=== PATIENT | female | born 1930 | race Caucasian/White ===

== ENCOUNTER 2016-08-06 10:54 | Emergency (ER) | payer MEDICARE, BC ==
--- NOTE | ~2016-08-06 | CT2 ---
[facility] A Service of [facility] & [facility] RADIOLOGY TEXT RESULTS PATIENT: SHAHNAZ WORLEY LOCATION: [facility] : [birth year] UNIT #: [id number] AGE: [address]: Dena Hollis MD SEX: F ORDER DR: [id number] [facility] [address] [place], [place] [address] [id number] MR#: [id number] Acc #: [id number] NAME: SHAHNAZ WORLEY. : 1930 SEX: F STUDY DATE/TIME: 08/06/2016 12:58 UNIT: [facility] ROOM: STUDY DESCRIPTION: CT Abd and Pelv W Cont Attending Physician: Dena Hollis M.D. Ordering Physician: Dena Hollis M.D. Primary Care Physician: Rocael Epstein Jr., M.D. MEDICAL IMAGING REPORT This report is preliminary unless electronic signature is present EXAM CT abdomen and pelvis with contrast. DATE OF EXAM 08/06/2016, 1258 hours. CLINICAL HISTORY 86-year-old woman complaining of low back pain and left hip pain since 08/03/2016. Nausea and vomiting today. COMPARISON None. TECHNIQUE Dynamic helical CT images were obtained from the lung bases through the pubic symphysis with intravenous contrast. Sagittal and coronal reconstructions were performed. Contrast was Isovue-370 100 mL IV. Total exam DLP 905 mGy-cm. NOTE: This CT exam was performed with one or more of the following radiation dose reduction techniques: automatic exposure control, adjustment of mA and/or kV according to patient size, and iterative reconstruction. FINDINGS Images through the lung bases demonstrate linear atelectasis or scar in the lingula and left lower lobe. There is a calcified granuloma in the left lower lobe. There are no acute infiltrates or effusions. There is a very small hiatal hernia. Images through the abdomen with contrast demonstrate a normal appearance to the liver, spleen, pancreas, gallbladder and bile ducts. The adrenal glands are normal. The kidneys enhance normally with no mass or stone seen. There is no obstruction or ureterectasis. No ureteral calculus. STS. [facility] A Service of [facility] & [facility] RADIOLOGY TEXT RESULTS PATIENT: SHAHNAZ WORLEY [id number] [birth year] UNIT #: [id number] AGE: [address]: Dena Hollis MD SEX: F ORDER DR: The bladder is normal. The stomach is contracted unopacified but appears normal. There is no small bowel distension or small bowel wall thickening. The appendix is normal. The colon demonstrates moderate stool in the right colon. There are colonic diverticula scattered in the descending colon with innumerable diverticula in the sigmoid colon. There is no definite wall thickening or pericolonic inflammation at this time. The rectum is normal. IMPRESSION 1. There are innumerable colonic diverticula in the sigmoid colon without definite bowel wall thickening or inflammation at this time. Findings are most consistent with diverticulosis without diverticulitis. 2. Normal appendix. 3. There is no adenopathy or ascites. 4. There is degenerative change in the lumbar spine particularly at L4-5. There is mild compression deformity at the inferior endplate of L1 of indeterminate age. Dictated by... Deepthi Brooks M.D. THIS IS AN ELECTRONICALLY VERIFIED REPORT Deepthi Brooks M.D. at 08/07/2016 9:27 AM JHONY/leif TD: 08/06/2016 16:31 JOB #: [id number] MEDICAL IMAGING REPORT COPY
[~2016-08-06 10:54] MED LIST: ATENOLOL PO; ATIVAN PO; CLONIDINE TOP; HCTZ PO; LISINOPRIL PO; PLETAL50 MG PO; ZOCOR PO
[2016-08-06 11:48] LABS: BASOPHIL# 0.1 X10e3 (0-0.3); BASOPHIL% 0.6 % (0-2.5); EOSINOPHIL% 0.4 % (0.0-7.0); HEMOGLOBIN 13.7 gm/dL (12.0-16.0); LYMPHOCYTE# 1.4 X10e3 (1.0-3.5); LYMPHOCYTE% 15.6 % (17.0-45.0); MEAN CELL VOLUME 87.1 FL (83-96); MEAN CORPUSCULAR HEMOGLOBIN 29.1 PG (28-34); MEAN CORPUSCULAR HGB CONC 33.4 g/dL (30-36); MEAN PLATELET VOLUME 8.8 FL (6.5-11.5); MONOCYTE# 0.6 X10e3 (0-1.0); MONOCYTE% 6.6 % (3.0-12.0); NEUTROPHIL% 76.8 % (40-75); PLATELET COUNT 223 X10e3 (140-420); RED BLOOD COUNT 4.71 X10e (3.90-5.30); RED CELL DISTRIBUTION WIDTH 14.1 % (11.0-15.5); WHITE BLOOD COUNT 9.1 X10e3 (4.0-10.5)
[2016-08-06 11:58] LABS: DIFF IND NO
[2016-08-06 12:03] LABS: URINE SOURCE CLEAN CATCH
[2016-08-06 12:12] LABS: ALBUMIN SERUM 4.1 g/dL (3.5-5.0); ALKALINE PHOSPHATASE 82 U/L (32-92); ALT (SGPT) 13 U/L (10-40); AST (SGOT) 29 U/L (10-42); BILIRUBIN, DIRECT 0.2 mg/dL (0.0-0.2); BILIRUBIN,INDIRECT 0.7 mg/dL (0.0-0.9); BILIRUBIN,TOTAL 0.9 mg/dL (0.2-2.0); BLOOD UREA NITROGEN 17 mg/dL (9-23); BUN/CREATININE RATIO 21.25; CALCIUM SERUM 9.3 mg/dL (8.4-10.2); CARBON DIOXIDE 27 mmol/L (22-31); CHLORIDE 97 mmol/L (100-111); CREATININE SERUM 0.8 mg/dL (0.6-1.4); GLOM FILT RATE Estimated ABOVE60 mL/min (>60); GLUCOSE FASTING 110 mg/dL (70-110); POTASSIUM 3.2 mmol/L (3.5-5.1); PROTEIN TOTAL SERUM 7.2 g/dL (6.0-8.3); SODIUM 135 mmol/L (135-145)
[2016-08-06 12:13] LABS: URINE APPEARANCE CLOUDY; URINE BILIRUBIN NEG (NEG); URINE BLOOD NEG (NEG); URINE COLOR YELLOW; URINE GLUCOSE NEG (NEG); URINE KETONE TRACE (NEG); URINE LEUKOCYTE ESTERASE 2+ (NEG); URINE NITRATE NEG (NEG); URINE PH 7.5 (5-8); URINE PROTEIN 2+ (NEG); URINE SPECIFIC GRAVITY 1.016 (1.003-1.035)
[2016-08-06 12:14] LABS: CULTURE INDICATED? YES; URINE BACTERIA AUWI 4+ (NEGATIVE); URINE SQUAMOUS EPITHELIAL CELL MOD /[HPF]; UWBCS1 AUWI 25-50 (0-5)
[2016-08-06 12:41] LABS: U HYALINE CASTS AUWI 0-2 /[LPF]
[2016-08-06 14:19] LABS: PARTIAL THROMBOPLASTIN TIME 27.8 SECONDS (23.5-31.3); PROTHROMBIN TIME (PATIENT) 10.9 SECONDS (9.6-11.5)
== END 2016-08-06 16:10 | disposition home or self-care (01) ==
LOC: CED 10:54
PROVIDERS: Emergency Medicine
DX: N39.0 Urinary tract infection, site not specified (principal); I10 Essential (primary) hypertension; E78.5 Hyperlipidemia, unspecified
CPT/HCPCS: 74177; 80048; 80076; 81003; 85025; 85610; 85730; 87086; 96374; 96375; 99284; J0360; J2270; J2405; Q9967

== ENCOUNTER 2016-08-10 02:36 | Inpatient (IN) | payer MEDICARE, BC ==
--- NOTE | ~2016-08-10 | CR21 ---
[facility] A Service of [facility] RADIOLOGY TEXT RESULTS PATIENT: SHAHNAZ WORLEY LOCATION: [facility] : [birth year] UNIT #: [id number] AGE: [address]: Marjan Brooks MD SEX: F ORDER DR: [id number] [facility] [address] [place], [place] [address] [id number] I MR#: [id number] Acc #: [id number] NAME: SAHHNAZ WORLEY. : 1930 SEX: F STUDY DATE/TIME: 08/13/2016 13:04 UNIT: [facility] ROOM: [facility] STUDY DESCRIPTION: CR Ankle Min 3 Views Rt Attending Physician: Marjan Brooks M.D. Ordering Physician: Mehul Romero M.D. Primary Care Physician: Rocael Epstein Jr., M.D. MEDICAL IMAGING REPORT This report is preliminary unless electronic signature is present EXAM Right ankle, 3 views. DATE OF EXAM 08/13/2016 at 1304 hours. CLINICAL HISTORY The patient fell 2 months ago with persistent pain in right ankle. Patient states, she broke the ankle 2 months ago. COMPARISON 05/20/2016 FINDINGS AP, lateral, and oblique views demonstrate osteopenia. There is an oblique subacute fracture of the distal fibula, similar to that seen on 05/20/2016, with some partial healing demonstrated. The medial malleolus is normal and the ankle mortise is normal. IMPRESSION Bones are osteopenic. There is some partial healing of the oblique fracture of the distal fibula, which was acute on 05/20/2016. It is incompletely healed. The alignment is stable. The ankle mortise appears symmetric. Dictated by... Deepthi Brooks M.D. THIS IS AN ELECTRONICALLY VERIFIED REPORT Deepthi Brooks M.D. at 08/14/2016 9:29 AM [facility] A Service [facility] RADIOLOGY TEXT RESULTS PATIENT: SHAHNAZ WORLEY LOCATION: [facility] : [birth year] UNIT #: [id number] AGE: [address]: Marjan Brooks MD SEX: F ORDER DR: JHONY/leif TD: 08/13/2016 17:09 JOB #: [id number] MEDICAL IMAGING REPORT COPY
--- NOTE | ~2016-08-10 | MR113 ---
[facility] A Service of [facility] RADIOLOGY TEXT RESULTS PATIENT: SHAHNAZ WORLEY LOCATION: [facility] : [birth year] UNIT #: [id number] AGE: [address]: Marjan Brooks MD SEX: F ORDER DR: [id number] [facility] [address] [place] [address] [place], [place] [address] [id number] I MR#: [id number] Acc #: [id number] NAME: SHAHNAZ WORLEY. : 1930 SEX: F STUDY DATE/TIME: 08/10/2016 11:44 UNIT: [facility] ROOM: [facility] STUDY DESCRIPTION: MR Lumbar Wo Contrast Attending Physician: Marjan Brooks M.D. Ordering Physician: Marjan Brooks M.D. Primary Care Physician: Rocael Epstein Jr., M.D. MRI CENTER REPORT This report is preliminary unless electronic signature is present. EXAM Lumbar spine MRI without contrast. DATE OF STUDY 08/10/2016 PROCEDURE Routine unenhanced lumbar spine MRI. COMPARISON STUDIES None CLINICAL HISTORY Low back and left hip and thigh pain for 4 days. FINDINGS There is a moderate levoscoliosis and a degenerative grade 1 4-5 anterolisthesis. There is a likely subacute L1 lower endplate compression fracture with about 30% height loss. There are some degenerative marrow signal changes at a few levels, but no marrow infiltration or replacement is seen. The distal cord and conus are normal in position and appearance. No other fracture is seen. The paraspinous tissues are unremarkable. At L1-2, disc and endplate change cause mild canal narrowing and qbfj-zh-fuapgrfj right and mild or tukd-jn-ibgpnyhc left foraminal stenosis. At 2-3, there is mild canal stenosis due to disc and endplate change and mild or vqfx-tg-hhpmzwdc right and dczj-ov-lukzadal left foraminal stenosis. At L3-4, there is mild canal stenosis due to disc and endplate change and [facility] A Service of [facility] RADIOLOGY TEXT RESULTS PATIENT: SHAHNAZ WORLEY LOCATION: [facility] 228-01 : [birth year] UNIT #: [id number] AGE: [address]: Marjan Brooks MD SEX: F ORDER DR: moderate right and mild left foraminal stenosis. At 4-5, there is moderate stenosis due to disc and endplate change and facet arthropathy and slight anterolisthesis, and there is jvwv-zc-qlptawhg right and dpnexysx-fh-xusmfe left foraminal stenosis. At 5-1, there is qlfywybcrb-we-tfgr canal stenosis and mild right and moderate left foraminal stenosis. IMPRESSION 1. Degenerative changes with canal and foraminal narrowing at multiple levels, most pronounced is 4-5 moderate canal stenosis and myvbxjab-he-anhkix left 4-5 foraminal stenosis. 2. Subacute lower endplate compression fracture at L1 with about 30% height loss. No other fracture. Dictated by... Jimy Mendoza M.D. THIS IS AN ELECTRONICALLY VERIFIED REPORT Jimy Mendoza M.D. at 08/12/2016 5:02 PM TEZ/hira TD: 08/12/2016 09:20 JOB #: [id number] MRI CENTER REPORT COPY
--- NOTE | ~2016-08-10 | DS ---
Unit #: [id number] #: [id number] Patient: SHAHNAZ WORLEY [id number] [address] [place], [place] [address] [id number] I MR#: [id number] NAME: SHAHNAZ WORLEY. ROOM: 228 Age: 86 Sex: F Admission Date: 08/10/2016 : 1930 Discharge Date: 08/14/2016 Attending Physician: Marjan Brooks M.D. Primary Care Physician: Rocael Epstein Jr., M.D. DISCHARGE SUMMARY DISCHARGE DIAGNOSES 1. Intractable back pain. 2. Left lower extremity radiculopathy. 3. L1 compression fracture. 4. Leukocytosis. 5. Restless leg syndrome. 6. Seizure disorder. 7. Essential hypertension. 8. Gastroesophageal reflux disease. 9. Old healing right ankle fracture. PROCEDURE The patient had a L1 kyphoplasty by Dr. Garcia on August 02, 2016. DIAGNOSTIC STUDIES LABORATORY: The day of discharge the patient's labs are BMP: Glucose 184, BUN 25, creatinine 0.9, sodium 135, potassium 5, chloride 101, CO2 of 27, calcium 8.6, magnesium 1.8. CBC with WBC of 10.8, RBC 4.46, hemoglobin 12.6, hematocrit 38.7, MCV 86.9, MCH 20.3, MCHC is 32.6, RDW is 14.1, platelets 251,000, MPV is 9.4. IMAGING: Imaging consists of: X-ray of spine on August 10, 2016: Compression deformity of the L1 vertebral body appears to have progressed since August 06, 2016, now with about 35% loss of vertebral body heights but no bony protrusion or subluxation is seen. Advanced degenerative disk and end plate changes most prominent at L5-S1 osteopenia, mild lumbar levoscoliosis. MRI of lumbar on August 10, 2016 with impression: Degenerative changes with canal and foraminal narrowing at multiple levels, most pronounced at L4-5, moderate canal stenosis and dqnmxdrx-mc-aaudmt L4-5 foraminal stenosis, subacute lower end plate compression fracture at L1 with about 30% height loss. No other fracture. X-ray of the spine on August 12, 2016 during the procedure for the L1 vertebroplasty. X-ray of ankle on August 13, 2016: Impression - bones were osteopenic. There is some partial healing of the oblique fracture of the distal fibula which is acute on May 20, 2016. It is incompletely healed. The alignment is stable. The ankle mortise appears symmetrical. [facility] Unit #: [id number] #: [id number] Patient: SHAHNAZ WORLEY 1. Dr. Garcia of spine surgery. 2. Dr. Thompson of orthopedic surgery. HOSPITAL COURSE The patient is an 86-year-old female with past medical history of essential hypertension, peripheral vascular disease, GERD, seizure disorder, and restless leg syndrome who presented to the emergency department over the course of 48-72 hours stating that she had intractable back pain with radiation down her left lower extremity. She said she was unable to ambulate while at home and therefore presented to the emergency department for further evaluation. She was seen in the emergency department where she subsequently complained of abdominal pain and/or discomfort as well. She had undergone x-rays while in the emergency room which revealed findings consistent with significant arthritis within the lumbar spine. Therefore, she was being admitted secondary to intractable back pain and radiculopathy into the left leg with indeterminate compression fracture. She was seen in consultation with Dr. Garcia, who felt that she would benefit from a kyphoplasty. This was done on August 12. Following this procedure, she was seen by physical and occupational therapy where then she states that since her fall and ankle fracture back in May that she really has not been able to ambulate or get out of bed three weeks prior hospitalization and that she will not be stable to go home. Under Dr. Thompson's recommendations, the patient is to remain weightbearing and nonweightbearing about 50% to the right lower extremity and that she could follow up with him in about three weeks. An x-ray of the ankle was done which showed that the fibula is partially healing. At this time, she is stable and is ready to be discharged. She can followup with her primary care physician within one to two weeks. Followup with Dr. Thompson within three weeks. DISCHARGE ACTIVITY Resume activity as was prior to hospitalization with ambulating every day as tolerated. Continue working with physical and occupational therapy. Weightbearing to that leg (1) . DISCHARGE DIET Heart healthy diet. DISCHARGE MEDICATIONS 1. Prednisolone 25 mg orally daily as was prior to hospitalization. 2. Keppra 500 mg orally twice daily. 3. Requip 2 mg orally at bedtime. 4. Pletal 100 mg orally daily. 5. Zocor 20 mg orally daily. 6. Clonidine 0.1 mg orally twice daily. 7. Lisinopril 10 mg orally at bedtime. 8. Breckenridge 5/325 one tablet orally every six hours as needed for pain. 9. Flexeril 10 mg orally at bedtime for the next five days. Dictated by... [place] PA-C for Khushi Hays TD: 08/14/2016 09:34 Unit #: [id number] #: [id number] Patient: SHAHNAZ WORLEY JOB #: [id number] DISCHARGE SUMMARY X X DISCHARGE SUMMARY
--- NOTE | ~2016-08-10 | OR ---
Unit #: [id number] #: [id number] Patient: SHAHNAZ WORLEY [id number] [address] [place], [place] [address] [id number] I MR#: [id number] NAME: SHAHNAZ WORLEY ROOM: 228 Date of Procedure: 08/12/2016 Admission Date: 08/10/2016 Surgeon: Rocael Garcia M.D. : 1930 Attending Physician: Marjan Brooks M.D. Primary Care Physician: Rocael Epstein Jr., M.D. PROCEDURE OPERATIVE NOTE PREOPERATIVE DIAGNOSES 1. Osteoporosis. 2. Osteoporotic L1 compression fracture. POSTOPERATIVE DIAGNOSES 1. Osteoporosis. 2. Osteoporotic L1 compression fracture. PROCEDURE PERFORMED L1 kyphoplasty (41371). SURGEON Rocael Garcia M.D. ANESTHESIA Dr. Johnson, general endotracheal. SPECIMENS None. COMPLICATIONS None. BLEEDING Minimal. INDICATION The patient is an 86-year-old female who fell at home. She suffered severe back pain, was brought to the hospital where an MRI revealed she had an L1 compression fracture. Treatment options were discussed with her at length. The risks of kyphoplasty were explained as well as the difficulty of predicting a specific outcome. DESCRIPTION OF PROCEDURE The patient was taken to surgery. After successful anesthesia she was placed prone in two well-padded bolsters. The back was prepped and draped in the usual sterols fashion. Under biplanar fluoroscopy the L1 pedicles were localized. These were then injected with 0.5% Marcaine. Two small stab incisions were made whereupon working cannulas were advanced within the vertebral body of L1. The bone was too porous to permit a core sample acquisition biopsy. The balloons were then placed. These were 10 mm balloons. They were inflated and had excellent position within the Unit #: [id number] #: [id number] Patient: SHAHNAZ WORLEY vertebral body. The balloons were deflated, removed and the methacrylate was slowly injected under live lateral fluoroscopic imaging. It was allowed to cure and harden whereupon the working cannulas were removed. The patient tolerated the procedure well, was turned spine, extubated and taken stable to recovery. All sponge, needle and instrument counts are correct X3. Dictated by... Khushi Cates/camilo TD: 08/12/2016 20:40 JOB #: [id number] PROCEDURE OPERATIVE NOTE X Rocael Garcia MD PROCEDURE OPERATIVE NOTE
--- NOTE | ~2016-08-10 | HP ---
Unit #: [id number] #: [id number] Patient: SHAHNAZ WORLEY [id number] [address] [address] [id number] I MR#: [id number] NAME: SHAHNAZ WORLEY. ROOM: 228 Age: 86 Sex: F Admission Date: 08/10/2016 : 1930 Attending Physician: Marjan Brooks M.D. Primary Care Physician: Rocael Epstein Jr., M.D. HISTORY AND PHYSICAL REASON FOR ADMISSION Intractable back pain. HISTORY OF PRESENT ILLNESS The patient is a very pleasant 86-year-old female who states that she really does not have any prior medical conditions and does not really like to come to hospitals but she states over the past 48-72 hours she has been having intractable low-back pain with radiation down her left lower extremity. She states she had inability to ambulate while at home and therefore, presented to the ER for further evaluation. While she was evaluated in the emergency room, she subsequently complained of abdominal pain and/or discomfort as well. She had undergone x-rays while in the emergency room which revealed findings consistent with significant arthritis within the lumbar spine. Therefore, she is being admitted secondary to the same. On a previous CT abdomen and pelvis which she had performed in the emergency room several days prior, there was a L4 compression fracture which was noted to be mild. Her white count on admission was 13.3, sodium 133, potassium 3.3. PAST MEDICAL HISTORY 1. Hypertension. 2. Peripheral vascular disease. 3. GERD. 4. Seizure disorder. 5. Restless leg syndrome. PAST SURGICAL HISTORY None. HOME MEDICATIONS 1. Atenolol. 2. Pletal. 3. Clonidine. 4. Hydrochlorothiazide. 5. Lisinopril. 6. Omeprazole. 7. Simvastatin. 8. Keppra. 9. Ropinirole. ALLERGIES Unit #: [id number] #: [id number] Patient: SHAHNAZ WORLEY No known drug allergies. REVIEW OF SYSTEMS Please see HPI. A 12 point otherwise negative except for those positive and noted in the HPI. FAMILY HISTORY Reviewed, noncontributory, nonpertinent. SOCIAL HISTORY No alcohol. No tobacco. The patient resides at home alone. PHYSICAL EXAMINATION VITAL SIGNS: Temperature 97.9, pulse 65, respiratory rate 12, blood pressure 159/71. GENERAL APPEARANCE: An 86-year-old female lying comfortably in no acute distress. HEAD: Atraumatic, normocephalic. EARS: Tympanic membranes did not reveal erythema, injection. NECK: Supple. CARDIOVASCULAR: S1, S2 without murmur. RESPIRATORY: Clear. No evidence of any wheezes, rales, or rhonchi. GASTROINTESTINAL/ABDOMEN: Nontender, nondistended. EXTREMITIES: Lower extremity exam: No evidence of any lower extremity edema or calf tenderness. NEUROLOGIC: Straight leg raising test positive, 45 degrees on left side. Tenderness to palpation over lower spine. INITIAL ADMISSION DIAGNOSES 1. Intractable back pain. 2. Left lower extremity radiculopathy. 3. L4 compression fracture, questionable new versus old. 4. Leukocytosis. 5. Restless leg syndrome. 6. Seizure disorder. 7. Hypertension. 8. Gastroesophageal reflux disease. PLAN 1. Admission. 2. MRI lumbar spine. 3. Spine consultation. 4. IV Solu-Medrol. 5. Low-dose muscle relaxer. 6. Further hospital course to follow pending MRI results as well as evaluation from spine services. 7. Physical therapy/occupational therapy evaluation prior to discharge. Dictated by Khushi Hays/leny TD: 08/10/2016 09:34 JOB #: [id number] Unit #: [id number] #: [id number] Patient: SHAHNAZ WORLEY HISTORY AND PHYSICAL X Marjan Brooks MD X HISTORY AND PHYSICAL
--- NOTE | ~2016-08-10 | CO ---
Unit #: [id number] #: [id number] Patient: SHAHNAZ ONEAL [id number] [facility]. [address] [place], [place] [address] [id number] I MR#: [id number] NAME: SHAHNAZ ONEAL. ROOM: 228 Age: 86 Sex: F Admission Date: 08/10/2016 : 1930 Attending Physician: Marjan Brooks M.D. Primary Care Physician: Rocael Epstein Jr., M.D. Requesting Physician: Marjan Brooks M.D. CONSULTATION REPORT HISTORY OF PRESENT ILLNESS Ms. Oneal is an 86-year-old lady who was admitted to the hospital for severe back pain. She subsequently was seen by spine service and x-rays revealed compression fracture. She was taken to the OR and underwent a kyphoplasty by Dr. Garcia. We have been asked to see her for her right ankle. She has had pain in this. She had a fracture in this in May and she says it is still a little bit sore but it does not bother her tremendously. PAST MEDICAL HISTORY Significant for: 1. Arthritis. 2. Reflux. 3. Seizure disorder. 4. Peripheral vascular disease. 5. Hypertension. 6. Restless leg. PAST SURGICAL HISTORY No previous surgeries. HOME MEDICATIONS Include: 1. Clonidine. 2. Hydrochlorothiazide. 3. Lisinopril. 4. Atenolol. 5. Pletal. 6. Omeprazole. 7. Simvastatin. 8. Keppra. 9. Ropinirole. ALLERGIES No allergies. SOCIAL HISTORY She denies the use of tobacco or alcohol. She lives at home alone. REVIEW OF SYSTEMS Reviewed and this was negative except for her current hospital complaint and her right ankle. Unit #: [id number] #: [id number] Patient: SHAHNAZ ONEAL PHYSICAL EXAMINATION VITAL SIGNS: She is afebrile. Pulse 64, blood pressure 153/50. GENERAL: She is alert, awake, oriented x3. She answers questions appropriately. RIGHT ANKLE: She has a little bit of tenderness laterally. No pain medially. She has good range of motion of her ankle. Neurovascular exam is intact. DIAGNOSTIC STUDIES IMAGING: I have reviewed her x-rays and it shows a healing oblique fibula fracture. The mortise does not appear to be widened. IMPRESSION Healing fracture. Will keep her on a walker, 50% weightbearing. Follow up in the office in 3 weeks. Dictated by... Nam Thompson M.D. CHANDNI/juli TD: 08/14/2016 22:03 JOB #: [id number] CONSULTATION REPORT X Nam Thompson MD X CONSULTATION REPORT
--- NOTE | ~2016-08-10 | CR181 ---
[facility] A Service of [facility] RADIOLOGY TEXT RESULTS PATIENT: SHAHNAZ WORLEY LOCATION: [facility] 228 : [birth year] UNIT #: [id number] AGE: [address]: Marjan Brooks MD SEX: F ORDER DR: [id number] [facility] [address] [place], [place] [address] [id number] I MR#: [id number] Acc #: [id number] NAME: SHAHNAZ WORLEY : 1930 SEX: F STUDY DATE/TIME: 08/12/2016 15:41 UNIT: [facility] ROOM: [facility] STUDY DESCRIPTION: CR Lumbar Spine 2 or 3 Views Attending Physician: Marjan Brooks M.D. Ordering Physician: Rocael Garcia M.D. Primary Care Physician: Rocael Epstein Jr., M.D. MEDICAL IMAGING REPORT This report is preliminary unless electronic signature is present EXAM C-arm fluoroscopy with 2 permanent images of the lumbar spine, 08/12/2016. HISTORY Low back pain and left hip pain and thigh pain for 4 days. Compression fracture at L1. L1 kyphoplasty in OR. FINDINGS C-arm fluoroscopy was provided for use in the operating room. 2 spot film radiographs of the upper lumbar spine were obtained in the anterior and lateral projections documenting placement of kyphoplasty cement within the L1 vertebral body. 1.54 minutes of fluoroscopy time was utilized. Dictated by... Jam Ahn M.D. THIS IS AN ELECTRONICALLY VERIFIED REPORT Jam Ahn M.D. at 08/14/2016 7:54 AM ALBERTO/hira TD: 08/13/2016 12:48 JOB #: [id number] MEDICAL IMAGING REPORT COPY
--- NOTE | ~2016-08-10 | CR181 ---
[facility]. [facility] A Service of [facility] RADIOLOGY TEXT RESULTS PATIENT: SHAHNAZ WORLEY LOCATION: [facility] 228- : [birth year] UNIT #: [id number] AGE: [address]: Marjan Brooks MD SEX: F ORDER DR: [id number] [facility] [address] [facility]. [place], [place] [address] [id number] MR#: [id number] Acc #: [id number] NAME: SHAHNAZ WORLEY. : 1930 SEX: F STUDY DATE/TIME: 08/10/2016 2:29 UNIT: [facility] ROOM: [facility] STUDY DESCRIPTION: CR Lumbar Spine 2 or 3 Views Attending Physician: Marjan Brooks M.D. Ordering Physician: Brian Wright M.D. Primary Care Physician: Rocael Epstein Jr., M.D. MEDICAL IMAGING REPORT This report is preliminary unless electronic signature is present EXAM 3 views lumbar spine DATE 08/10/2016 HISTORY 86-year-old female with back pain and left leg pain for 2 days. No known injury. COMPARISON CT abdomen and pelvis bone windows from 08/06/2016. FINDINGS There is mid lumbar levoscoliosis. Advanced diminished disc height is present at L4-5 eccentrically to the left with endplate sclerosis and marginal osteophyte formation. Lesser degree of diminished disc height is present at L3-4 and L5-S1. There is a compression fracture of the L1 vertebral body with approximately 35% loss of vertebral body height but no definite bony retropulsion or subluxation. The compression deformity appears to have progressed since the 08/06/2016 CT. Osteopenic changes are present. No sacroiliac joint diastasis. Dense calcific atherosclerosis within the abdominal aorta. IMPRESSION 1. The compression deformity of the L1 vertebral body appears to have progressed since 08/06/2016, now with about 35% loss of vertebral body height but no bony retropulsion or subluxation is seen. 2. Advanced degenerative disc and endplate changes most prominent at L5-S1. 3. Osteopenia. [facility] A Service of [facility] RADIOLOGY TEXT RESULTS PATIENT: SHAHNAZ WORLEY LOCATION: A 228-01 : [birth year] UNIT #: [id number] AGE: [address]: Marjan Brooks MD SEX: F ORDER DR: 4. Mid lumbar levoscoliosis. Dictated by... Rachael Logan M.D. THIS IS AN ELECTRONICALLY VERIFIED REPORT Rachael Logan M.D. at 08/10/2016 10:47 PM NICOLE/stephanie TD: 08/10/2016 22:31 JOB #: [id number] MEDICAL IMAGING REPORT COPY
--- NOTE | ~2016-08-10 | CO ---
Unit #: [id number] #: [id number] Patient: SHAHNAZ WORLEY [id number] [place], [place] [address] [id number] I MR#: [id number] NAME: SHAHNAZ WORLEY. ROOM: 228 Age: 86 Sex: F Admission Date: 08/10/2016 : 1930 Attending Physician: Marjan Brooks M.D. Primary Care Physician: Rocael Epstein Jr., M.D. CONSULTATION REPORT REQUESTING PHYSICIAN Dr. Deleon. CHIEF COMPLAINT Low-back pain. HISTORY OF PRESENT ILLNESS The patient is an 86 year old who fell at home off her walker. She had severe back pain and was brought in for evaluation. PAST MEDICAL HISTORY 1. Seizures. 2. High blood pressure. MEDICATIONS 1. Requip. 2. Clonidine. 3. Lisinopril. 4. Atenolol. 5. Keppra. 6. Pletal. 7. Hydrochlorothiazide. 8. Zocor. 9. Methylprednisolone. SOCIAL HISTORY She is a nonsmoker, nondrinker. REVIEW OF SYSTEMS A 14-point review of systems is negative except for the above, namely back pain. PHYSICAL EXAMINATION The patient is awake, alert, and oriented to person, place, and time. Mood and affect are appropriate. There are no motor or sensory deficits in her upper or lower extremities. A 5/5 strength. No tenderness or abrasions in her lower back. DIAGNOSTIC STUDIES IMAGING: MRI of the lumbar spine demonstrates some mild stenosis and what appears to be an acute fracture at L1. CLINICAL IMPRESSION 1. L1 compression fracture. Unit #: [id number] #: [id number] Patient: SHAHNAZ WORLEY 2. Osteoporosis. RECOMMENDATIONS We discussed various treatment options. She would like to proceed with kyphoplasty. The risks of kyphoplasty include ectopic methacrylate extrusion, nerve damage, junctional fractures or other problems. I also cannot guarantee a specific outcome, although I recommend the surgery. Dictated by... Rocael Garcia M.D. YVONNE/leny TD: 08/11/2016 15:54 JOB #: [id number] CONSULTATION REPORT X Rocael Garcia MD CONSULTATION REPORT
[2016-08-10 03:19] LABS: BASOPHIL% 0.2 % (0-2.5); EOSINOPHIL% 0.3 % (0.0-7.0); HEMATOCRIT 44.8 % (35.0-45.0); HEMOGLOBIN 14.4 gm/dL (12.0-16.0); LYMPHOCYTE# 2.1 X10e3 (1.0-3.5); LYMPHOCYTE% 15.9 % (17.0-45.0); MEAN CELL VOLUME 89.3 FL (83-96); MEAN CORPUSCULAR HEMOGLOBIN 28.8 PG (28-34); MEAN CORPUSCULAR HGB CONC 32.2 g/dL (30-36); MEAN PLATELET VOLUME 8.9 FL (6.5-11.5); MONOCYTE# 1.4 X10e3 (0-1.0); MONOCYTE% 10.4 % (3.0-12.0); NEUTROPHIL# 9.8 X10e3 (1.5-7.1); NEUTROPHIL% 73.2 % (40-75); PLATELET COUNT 211 X10e3 (140-420); RED BLOOD COUNT 5.02 X10e (3.90-5.30); RED CELL DISTRIBUTION WIDTH 13.9 % (11.0-15.5); WHITE BLOOD COUNT 13.3 X10e3 (4.0-10.5)
[2016-08-10 03:21] LABS: URINE APPEARANCE CLEAR; URINE BILIRUBIN NEG (NEG); URINE BLOOD NEG (NEG); URINE COLOR YELLOW; URINE GLUCOSE NEG (NEG); URINE KETONE NEG (NEG); URINE LEUKOCYTE ESTERASE NEG (NEG); URINE NITRATE NEG (NEG); URINE PROTEIN 2+ (NEG); URINE SPECIFIC GRAVITY 1.017 (1.003-1.035)
[2016-08-10 03:24] LABS: URBCS1 AUWI 0-2 /[HPF] (0-2); URINE BACTERIA AUWI NEG (NEGATIVE); URINE SQUAMOUS EPITHELIAL CELL NONE SEEN /[HPF]; UWBCS1 AUWI 0-2 (0-5)
[2016-08-10 03:27] LABS: DIFF IND NO
[2016-08-10 03:33] LABS: CULTURE INDICATED? NO
[2016-08-10 03:39] LABS: BLOOD UREA NITROGEN 23 mg/dL (9-23); BUN/CREATININE RATIO 28.75; CALCIUM SERUM 9.2 mg/dL (8.4-10.2); CARBON DIOXIDE 28 mmol/L (22-31); CHLORIDE 97 mmol/L (100-111); CREATININE SERUM 0.8 mg/dL (0.6-1.4); GLOM FILT RATE Estimated ABOVE60 mL/min (>60); GLUCOSE FASTING 100 mg/dL (70-110); POTASSIUM 3.3 mmol/L (3.5-5.1); SODIUM 133 mmol/L (135-145)
[2016-08-10] MEDS ORDERED: TENORMIN25 MG (04:35)
[2016-08-10] MEDS ORDERED: CATAPRES0.1 MG PO (04:36)
[2016-08-10] MEDS ORDERED: PLETAL100 M1 PO (04:36)
[2016-08-10] MEDS ORDERED: HYDROCHLOROTH12.5 M1 (04:36)
[2016-08-10] MEDS ORDERED: ZESTRIL40 MG PO (04:36)
[2016-08-10] MEDS ORDERED: PREDNISOLO25 MG/5 ML PO (04:37)
[2016-08-10] MEDS ORDERED: OMEPRAZOLE20 M1 PO (04:37)
[2016-08-10] MEDS ORDERED: KEPPRA500 M2 PO (04:38)
[2016-08-10] MEDS ORDERED: ZOCOR20 MG PO (04:38)
[2016-08-10] MEDS ORDERED: REQUIP5 MG PO (04:39)
[2016-08-11 06:07] LABS: HEMATOCRIT 40.2 % (35.0-45.0); HEMOGLOBIN 13.5 gm/dL (12.0-16.0); MEAN CELL VOLUME 86.4 FL (83-96); MEAN CORPUSCULAR HGB CONC 33.6 g/dL (30-36); MEAN PLATELET VOLUME 9.3 FL (6.5-11.5); RED BLOOD COUNT 4.65 X10e (3.90-5.30); RED CELL DISTRIBUTION WIDTH 13.9 % (11.0-15.5); WHITE BLOOD COUNT 7.5 X10e3 (4.0-10.5)
[2016-08-11 06:50] LABS: BLOOD UREA NITROGEN 25 mg/dL (9-23); BUN/CREATININE RATIO 27.77; CALCIUM SERUM 8.8 mg/dL (8.4-10.2); CARBON DIOXIDE 28 mmol/L (22-31); CHLORIDE 97 mmol/L (100-111); CREATININE SERUM 0.9 mg/dL (0.6-1.4); GLOM FILT RATE Estimated ABOVE60 mL/min (>60); GLUCOSE FASTING 173 mg/dL (70-110); POTASSIUM 3.8 mmol/L (3.5-5.1); SODIUM 134 mmol/L (135-145)
[2016-08-12] MEDS ORDERED: NORCO1 TAB 10/3 PO (09:56)
[2016-08-12] MEDS ORDERED: FLEXERIL10 MG PO (09:57)
[2016-08-13 18:34] LABS: URINE APPEARANCE CLEAR; URINE BILIRUBIN NEG (NEG); URINE BLOOD NEG (NEG); URINE COLOR YELLOW; URINE GLUCOSE 100 MG/DL (NEG); URINE KETONE NEG (NEG); URINE LEUKOCYTE ESTERASE NEG (NEG); URINE NITRATE NEG (NEG); URINE PROTEIN NEG (NEG); URINE SPECIFIC GRAVITY 1.008 (1.003-1.035); URINE UROBILINOGEN 0.2 MG/DL (NEG)
[2016-08-14 06:34] LABS: HEMATOCRIT 38.7 % (35.0-45.0); HEMOGLOBIN 12.6 gm/dL (12.0-16.0); MEAN CELL VOLUME 86.9 FL (83-96); MEAN CORPUSCULAR HEMOGLOBIN 28.3 PG (28-34); MEAN CORPUSCULAR HGB CONC 32.6 g/dL (30-36); MEAN PLATELET VOLUME 9.4 FL (6.5-11.5); RED BLOOD COUNT 4.46 X10e (3.90-5.30); RED CELL DISTRIBUTION WIDTH 14.1 % (11.0-15.5); WHITE BLOOD COUNT 10.6 X10e3 (4.0-10.5)
[2016-08-14 06:59] LABS: BLOOD UREA NITROGEN 25 mg/dL (9-23); BUN/CREATININE RATIO 27.77; CALCIUM SERUM 8.6 mg/dL (8.4-10.2); CARBON DIOXIDE 27 mmol/L (22-31); CHLORIDE 101 mmol/L (100-111); CREATININE SERUM 0.9 mg/dL (0.6-1.4); GLOM FILT RATE Estimated ABOVE60 mL/min (>60); GLUCOSE FASTING 184 mg/dL (70-110); MAGNESIUM 1.8 mg/dL (1.6-3.0); SODIUM 135 mmol/L (135-145)
== END 2016-08-14 15:47 | DRG 517 ==
LOC: CED 02:36 → C2A 04:35
PROVIDERS: Emergency Medicine; Family Medicine; Orthopaedic Surgery Orthopaedic Surgery of the Spine; Physician Assistant Medical
PROC: 0QU03JZ Supplement Lumbar Vertebra with Synthetic Substitute, Percutaneous Approach (ICD-10-PCS; 2016-08-12)
PROC: 0QS03ZZ Reposition Lumbar Vertebra, Percutaneous Approach (ICD-10-PCS; principal; 2016-08-12 16:00)
DX: M80.88XA Other osteoporosis with current pathological fracture, vertebra(e), initial encounter for fracture (principal); G40.909 Epilepsy, unspecified, not intractable, without status epilepticus; I73.9 Peripheral vascular disease, unspecified; I10 Essential (primary) hypertension; K21.9 Gastro-esophageal reflux disease without esophagitis; G25.81 Restless legs syndrome; D72.829 Elevated white blood cell count, unspecified; M19.90 Unspecified osteoarthritis, unspecified site
CPT/HCPCS: 36415; 51701; 72100; 72148; 73610; 76000; 80048; 81003; 83735; 85025; 85027; 87086; 97163; 97530; 99285; C1713; G8978-GP; G8979-GP; J0330; J0690; J1885; J2270; J2710; J2930; J3010

== ENCOUNTER 2016-10-14 11:05 | Inpatient (IN) | payer MEDICARE, BC ==
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
--- NOTE | ~2016-10-14 | CT71 ---
[facility] A Service of [facility] RADIOLOGY TEXT RESULTS PATIENT: SHAHNAZ WORLEY LOCATION: [facility] : [birth year] UNIT #: [id number] AGE: [address]: Mimi Bragg MD SEX: F ORDER DR: [id number] [place] [id number] [facility]. [place], [place] [address] [id number] E MR#: [id number] Acc #: [id number] NAME: SHAHNAZ WORLEY : 1930 SEX: F STUDY DATE/TIME: 10/14/2016 12:45 UNIT: [facility] ROOM: STUDY DESCRIPTION: CT Head Wo Contrast Attending Physician: Mimi Bragg M.D. Ordering Physician: Mimi Bragg M.D. Primary Care Physician: Rocael Epstein Jr., M.D. MEDICAL IMAGING REPORT This report is preliminary unless electronic signature is present EXAM CT scan of the head without contrast HISTORY Confusion, weakness starting 4 days ago. COMPARISON STUDIES 08/12/2015. TECHNIQUE Unenhanced images were obtained through the brain. This CT exam was performed with one or more of the following radiation dose reduction techniques: automatic exposure control, adjustment of mA and/or kV according to patient size, and iterative reconstruction. FINDINGS There is marked generalized atrophy with extensive symmetric small vessel ischemic change in the periventricular white matter. There is no hemorrhage. There is no acute abnormality. There is CSF density 8 mm area in the left cerebellum which may be an old infarct and is stable. IMPRESSION Atrophy and old ischemic changes. No acute findings. Dictated by... Raf Noel M.D. THIS IS AN ELECTRONICALLY VERIFIED REPORT Raf Noel M.D. at 10/14/2016 3:55 PM [facility] RADIOLOGY TEXT RESULTS PATIENT: SHAHNAZ WORLEY LOCATION: [facility] : [birth year] UNIT #: [id number] AGE: [address]: Mimi Bragg MD SEX: F ORDER DR: IMMANUEL/zakia TD: 10/14/2016 15:15 JOB #: [id number] MEDICAL IMAGING REPORT Page 1 of 1 COPY
--- NOTE | ~2016-10-14 | CR72 ---
[facility] A Service of [facility] RADIOLOGY TEXT RESULTS PATIENT: SHAHNAZ WORLEY LOCATION: [place] [address] : [birth year] UNIT #: [id number] AGE: [address]: JERO SELBY MD SEX: F ORDER DR: [id number] [place] [id number] [facility]. [place], [place] [address] [id number] E MR#: [id number] Acc #: [id number] NAME: SHAHNAZ WORLEY : 1930 SEX: F STUDY DATE/TIME: 10/14/2016 12:36 UNIT: [facility] ROOM: STUDY DESCRIPTION: CR Chest Single View Portable Attending Physician: Mimi Bragg M.D. Ordering Physician: Mimi Bragg M.D. Primary Care Physician: Rocael Epstein Jr., M.D. MEDICAL IMAGING REPORT This report is preliminary unless electronic signature is present EXAM AP portable chest 10/14/2016 HISTORY Confusion and wheezing for 4 days. Former smoker. COMPARISON PA and lateral chest radiograph 08/12/2015. PA chest with right rib detail series 05/20/2016. FINDINGS Extensive calcified granulomatous changes are present within bilateral hilar regions and within the [id number] lung zones. There is stable cardiac enlargement. Linear opacities are present in the bilateral lower lobes favored to represent subsegmental atelectasis. No dense lung consolidations are seen. There is dense calcification within the thoracic aorta. No pleural effusion or pneumothorax is identified. There are degenerative changes in both shoulders. IMPRESSION 1. Linear bibasilar opacities favored to represent subsegmental atelectasis, without dense consolidation. 2. Benign calcified granulomatous changes. 3. Stable mild cardiac enlargement. Dictated by... Rachael Logan M.D. THIS IS AN ELECTRONICALLY VERIFIED REPORT Rachael Logan M.D. at 10/15/2016 7:08 AM LLH/tatyana [facility] A Service of [facility] RADIOLOGY TEXT RESULTS PATIENT: SHAHNAZ WORLEY LOCATION: [facility] 560-01 : [birth year] UNIT #: [id number] AGE: [address]: JERO SELBY MD SEX: F ORDER DR: TD: 10/14/2016 15:50 JOB #: [id number] MEDICAL IMAGING REPORT Page 1 of 1 COPY
--- NOTE | ~2016-10-14 | HP ---
Unit #: [id number] #: [id number] Patient: SHAHNAZ WORLEY [id number] [address] [address] [id number] E MR#: [id number] NAME: SHAHNAZ WORLEY ROOM: Age: 86 Sex: F Admission Date: 10/14/2016 : 1930 Attending Physician: Mimi Bragg M.D. Primary Care Physician: Rocael Epstein Jr., M.D. HISTORY AND PHYSICAL CHIEF COMPLAINT Altered mental status. HISTORY OF PRESENT ILLNESS The patient is an 86-year-old female with history of seizure disorder, restless leg syndrome, hypertension, and status post kyphoplasty of the lumbar compression fracture back in July 2016, brought to the emergency room complaining of hallucinations. The patient was in the rehab for a few weeks and came home three weeks ago. The patient has not been on any pain medications. The patient has been having urinary frequency and urgency for the last few days. The patient was seen by the PCP and recommended to come to the hospital. The patient was found to have a potassium of 2.9 and concerning for the possibility of UTI and patient is being admitted for the above reasons. Denies any fever, chills, nausea, vomiting and fall. PAST MEDICAL HISTORY 1. History of hypertension. 2. Peripheral vascular disease. 3. GERD. 4. Seizure disorder. 5. Restless leg syndrome. PAST SURGICAL HISTORY Kyphoplasty. HOME MEDICATIONS 1. Pletal. 2. Atenolol. 3. Clonidine. 4. Hydrochlorothiazide. 5. Lisinopril. 6. Omeprazole. 7. Simvastatin. 8. Keppra. 9. Ropinirole. ALLERGIES No known drug allergies. SOCIAL HISTORY No history of smoking tobacco, drinking alcohol or any illicit drug abuse. The patient resides at home alone. Unit #: [id number] #: [id number] Patient: SHAHNAZ WORLEY FAMILY HISTORY Reviewed and none. REVIEW OF SYSTEMS A 14-point review of systems performed and only pertinent positive findings are described above, remaining are negative. PHYSICAL EXAMINATION VITAL SIGNS: Temperature 97.5, pulse 93, respiratory rate 16, blood pressure 152/60, saturating 97% at room air. GENERAL: Patient is lying on the bed not in acute distress and wants to go home. HEENT: Atraumatic, normocephalic. Pupils equal, round, and reactive to light and accommodation. Extraocular movements are intact. NECK: Supple. LUNGS: Decreased air entry at the bases. HEART: Regular rate and rhythm. ABDOMEN: Soft, positive bowel sounds. EXTREMITIES: No cyanosis, no clubbing. NEUROLOGIC: Alert, awake, oriented. No gross focal motor deficit. DIAGNOSTIC STUDIES LABORATORY: pH 7.47, pCO2 of 38.4, pO2 of 83.9, oxygen saturation 95.5. Glucose 120, BUN 13, creatinine 0.7, sodium 136, potassium 2.9, chloride 98, bicarb 26, calcium 9.2, total protein 7.1, albumin 4.2, total bilirubin 0.9, AST 27, ALT 17, alkaline phosphatase 85. Ammonia 31. Alcohol less than 5. INR 1. WBC 9.7, hemoglobin 14, hematocrit 42.7, platelets 281. Urine toxicology screen negative. UA shows trace leukocyte esterase and 5-10 urine wbc's, 1+ urine bacteria. CARDIOVASCULAR: EKG shows normal sinus rhythm with sinus arrhythmia, LVH and acute ST-T changes. ASSESSMENT AND PLAN 1. Altered mental status with hallucination. 2. Probable urinary tract infection. 3. Hypokalemia. PLAN 1. Admit patient as observation with telemetry. 2. Continue with IV antibiotic Rocephin. 3. Replace the potassium per protocol. 4. Repeat the UA straight cath to rule out the UTI as the UA that was obtained has squamous epithelial cells concerning for contamination. 5. Repeat CBC and BMP again in the morning. 6. Further recommendations will follow. Dictated by Khushi Hernandez TD: 10/14/2016 17:03 JOB #: [id number] Unit #: [id number] #: [id number] Patient: SHAHNAZ WORLEY HISTORY AND PHYSICAL Page 1 of 1 X X HISTORY AND PHYSICAL
--- NOTE | ~2016-10-14 | EKG ---
PATIENT: SHAHNAZ WORLEY UNIT #: [id number] Ventricular Rate: 96 BPM Atrial Rate: 96 BPM P-R Interval: 188 ms QRS Duration: 76 ms Q-T Interval: 382 ms QTC Calculation(Bezet): 482 ms P Kimmell: 48 degrees Calculated R Kimmell: -22 degrees Calculated T Kimmell: 48 degrees Diagnosis Line: Normal sinus rhythm with sinus arrhythmia Diagnosis Line: Left ventricular hypertrophy with repolarization Diagnosis Line: abnormality Diagnosis Line: Abnormal ECG Diagnosis Line: When compared with ECG of 12-AUG-2015 17:21, Diagnosis Line: OH interval has decreased Diagnosis Line: Confirmed by MASON WINTERS MD ([id number]) on Diagnosis Line: 10/15/2016 1:29:22 PM INTERPRETING MD: VIANEY VENTURA
--- NOTE | ~2016-10-14 | MR18 ---
[facility] A Service of [facility] RADIOLOGY TEXT RESULTS PATIENT: SHAHNAZ WORLEY LOCATION: [facility] 560-01 : [birth year] UNIT #: [id number] AGE: [address]: Marjan Brooks MD SEX: F ORDER DR: [id number] [facility] [address] [facility]. [place], [place] [address] [id number] I MR#: [id number] Acc #: [id number] NAME: SHAHNAZ WORLEY : 1930 SEX: F STUDY DATE/TIME: 10/15/2016 19:42 UNIT: [facility] ROOM: [facility] STUDY DESCRIPTION: MR Brain Wo Contrast Attending Physician: Marjan Brooks M.D. Ordering Physician: Physician Non-Staff Primary Care Physician: Rocael Epstein Jr., M.D. MRI CENTER REPORT This report is preliminary unless electronic signature is present. EXAM MRI of the brain without contrast HISTORY Confusion began 2 weeks ago with hallucinations. The patient cannot walk since last week and is unable to give further history. No known injury surgery or cancer. The patient does have a history of hypertension and is nearly blind. COMMENT MRI brain attempted without contrast. This is a very motion limited study despite motion limiting sequences and repeating sequences. The head CT comparison is from 15:17 FINDINGS There is a small focus of restricted diffusion apparently in the skin right side just anterior to the parotid gland, and it is about 5 mm dimension. I would suggest correlation with findings on physical exam. There is nothing to suggest recent ischemic insult on the diffusion series. There is atrophy. No MRI evidence for intracranial hemorrhage. 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 There is also extensive white matter disease fairly confluent involving subcortical deep and periventricular white matter. The major intracranial flow voids at the base of the brain are grossly maintained. Again there is severe motion degradation of the study. There is partly seen paranasal sinus disease at least in the sphenoid sinuses on the sagittal T1-weighted imaging. There is no obvious mastoid opacification. There is no obvious intracranial mass effect. IMPRESSION STS. [facility] A Service of [facility] & [facility] RADIOLOGY TEXT RESULTS PATIENT: SHAHNAZ WORLEY LOCATION: [facility] 560-01 : [birth year] UNIT #: [id number] AGE: [address]: Marjan Brooks MD SEX: F ORDER DR: 1. This is a very motion limited study. There is nothing to suggest a recent ischemic insult on the diffusion series. There is atrophy and extensive probable sequelae of small vessel disease. There is no obvious intracranial mass effect or extraaxial fluid collection allowing for the motion. 2. There is a small focus of restricted diffusion seen in the skin tissues right side anterior to the parotid gland about 5 mm in dimension. It corresponds with some type of skin lesion and I would recommend correlation with physical exam findings. Dictated by... Addie Reynolds M.D. THIS IS AN ELECTRONICALLY VERIFIED REPORT Addie Reynolds M.D. at 10/15/2016 9:33 PM LESA/karthikeyan TD: 10/15/2016 21:17 JOB #: [id number] MRI CENTER REPORT Page 1 of 1 COPY
[~2016-10-14 11:05] MED LIST changes: +CATAPRES0.1 MG PO; +FLEXERIL10 MG PO; +HYDROCHLOROTH12.5 M1; +KEPPRA500 M2 PO; +NORCO1 TAB 10/3 PO; +OMEPRAZOLE20 M1 PO; +PLETAL100 M1 PO; +PREDNISOLO25 MG/5 ML PO; +REQUIP5 MG PO; +TENORMIN25 MG; +ZESTRIL40 MG PO; +ZOCOR20 MG PO
[2016-10-14 12:12] LABS: BASOPHIL# 0.1 X10e3 (0-0.3); BASOPHIL% 1.3 % (0-2.5); EOSINOPHIL# 0.1 X10e3 (0-0.7); EOSINOPHIL% 1.5 % (0.0-7.0); HEMATOCRIT 42.7 % (35.0-45.0); LYMPHOCYTE# 2.4 X10e3 (1.0-3.5); LYMPHOCYTE% 24.4 % (17.0-45.0); MEAN CORPUSCULAR HEMOGLOBIN 28.5 PG (28-34); MEAN CORPUSCULAR HGB CONC 32.8 g/dL (30-36); MONOCYTE# 0.8 X10e3 (0-1.0); MONOCYTE% 8.2 % (3.0-12.0); NEUTROPHIL# 6.3 X10e3 (1.5-7.1); NEUTROPHIL% 64.6 % (40-75); PLATELET COUNT 281 X10e3 (140-420); RED BLOOD COUNT 4.91 X10e (3.90-5.30); RED CELL DISTRIBUTION WIDTH 14.1 % (11.0-15.5); WHITE BLOOD COUNT 9.7 X10e3 (4.0-10.5)
[2016-10-14 12:26] LABS: DIFF IND NO
[2016-10-14 12:27] LABS: PARTIAL THROMBOPLASTIN TIME 27.2 SECONDS (23.5-31.3); PROTHROMBIN TIME (PATIENT) 10.7 SECONDS (9.6-11.5)
[2016-10-14 12:38] LABS: ALBUMIN SERUM 4.2 g/dL (3.5-5.0); BILIRUBIN,TOTAL 0.9 mg/dL (0.2-2.0); BUN/CREATININE RATIO 18.57; CALCIUM SERUM 9.2 mg/dL (8.4-10.2); CREATININE SERUM 0.7 mg/dL (0.6-1.4); GLOM FILT RATE Estimated 77.4 mL/min (>60); PROTEIN TOTAL SERUM 7.1 g/dL (6.0-8.3)
[2016-10-14 12:41] LABS: POTASSIUM 2.9 mmol/L (3.5-5.1)
[2016-10-14 12:44] LABS: POC - CKMB 1.9 ng/mL (0.0-7.9); POC - TROPONIN <0.05 ng/mL (<=0.05)
[2016-10-14 12:53] LABS: INFLUENZA A NEG (NEG); INFLUENZA B NEG (NEG)
[2016-10-14 14:03] LABS: CULTURE INDICATED? YES; U HYALINE CASTS AUWI 0-2 /[LPF]; URBCS1 AUWI 0-2 /[HPF] (0-2); URINE APPEARANCE CLEAR; URINE BACTERIA AUWI 1+ (NEGATIVE); URINE BILIRUBIN NEG (NEG); URINE BLOOD NEG (NEG); URINE COLOR YELLOW; URINE GLUCOSE NEG (NEG); URINE KETONE NEG (NEG); URINE LEUKOCYTE ESTERASE TRACE (NEG); URINE NITRATE NEG (NEG); URINE PROTEIN NEG (NEG); URINE SOURCE CLEAN CATCH; URINE SPECIFIC GRAVITY 1.011 (1.003-1.035); URINE SQUAMOUS EPITHELIAL CELL FEW /[HPF]
[2016-10-14 14:06] LABS: AMPHETAMINE NEG (NEG); BARBITURATES NEG (NEG); BENZODIAZEPINES NEG (NEG); COCAINE NEG (NEG); MARIJUANA NEG (NEG); OPIATES NEG (NEG); TRICYCLIC ANTIDEPRESSANTS NEG (NEG); U METHADONE NEG (NEG)
[2016-10-14 14:48] LABS: ARTERIAL BLD GAS O2 SATURATION 95.5 % (90.0-100.0); ARTERIAL BLOOD GAS CARBOXY HB 0.8 %sat (0.0-9.0); ARTERIAL BLOOD GAS MET HB 0.8 %sat (0.0-2.0); ARTERIAL BLOOD GAS PCO2 38.4 mmHg (35.0-45.0); ARTERIAL BLOOD GAS PO2 83.9 mmHg (80.0-100); ARTERIAL BLOOD GAS pH 7.472 (7.350-7.450)
[2016-10-14 14:50] LABS: ARTERIAL BLOOD GAS ART SITE RIGHT BRACHIAL; ARTERIAL DRAW? YES
[2016-10-15 07:02] LABS: BASOPHIL# 0.2 X10e3 (0-0.3); BASOPHIL% 1.5 % (0-2.5); EOSINOPHIL# 0.3 X10e3 (0-0.7); EOSINOPHIL% 3.3 % (0.0-7.0); HEMATOCRIT 42.9 % (35.0-45.0); HEMOGLOBIN 13.6 gm/dL (12.0-16.0); LYMPHOCYTE# 2.7 X10e3 (1.0-3.5); MEAN CELL VOLUME 88.5 FL (83-96); MEAN CORPUSCULAR HEMOGLOBIN 28.1 PG (28-34); MEAN CORPUSCULAR HGB CONC 31.7 g/dL (30-36); MEAN PLATELET VOLUME 9.8 FL (6.5-11.5); MONOCYTE# 0.9 X10e3 (0-1.0); MONOCYTE% 8.9 % (3.0-12.0); NEUTROPHIL# 6.3 X10e3 (1.5-7.1); NEUTROPHIL% 60.3 % (40-75); PLATELET COUNT 246 X10e3 (140-420); RED BLOOD COUNT 4.84 X10e (3.90-5.30); RED CELL DISTRIBUTION WIDTH 14.4 % (11.0-15.5); WHITE BLOOD COUNT 10.4 X10e3 (4.0-10.5)
[2016-10-15 07:11] LABS: DIFF IND NO
[2016-10-15 07:41] LABS: BUN/CREATININE RATIO 16.66; CALCIUM SERUM 9.4 mg/dL (8.4-10.2); CREATININE SERUM 0.6 mg/dL (0.6-1.4); GLOM FILT RATE Estimated 81.4 mL/min (>60)
[2016-10-15 07:47] LABS: POTASSIUM 4.5 mmol/L (3.5-5.1)
[2016-10-15 17:12] LABS: %MB 4.9 % (0.0-4.0); MB 4.5 ng/ml
[2016-10-16 07:51] LABS: HEMATOCRIT 41.2 % (35.0-45.0); HEMOGLOBIN 13.3 gm/dL (12.0-16.0); MEAN CORPUSCULAR HEMOGLOBIN 28.3 PG (28-34); MEAN CORPUSCULAR HGB CONC 32.2 g/dL (30-36); MEAN PLATELET VOLUME 9.5 FL (6.5-11.5); RED BLOOD COUNT 4.68 X10e (3.90-5.30); RED CELL DISTRIBUTION WIDTH 14.3 % (11.0-15.5); WHITE BLOOD COUNT 8.7 X10e3 (4.0-10.5)
[2016-10-16 08:46] LABS: THYROID STIMULATING HORMONE 2.2 uIU/ml (0.34-5.60)
[2016-10-16 08:53] LABS: FREE THYROXIN (T4) 1.04 ng/dL (0.58-1.64)
[2016-10-16 08:56] LABS: FOLATE (FOLIC ACID) >23.6 ng/mL (>5.8)
[2016-10-16 09:10] LABS: BLOOD UREA NITROGEN 11 mg/dL (9-23); BUN/CREATININE RATIO 18.33; CALCIUM SERUM 9.2 mg/dL (8.4-10.2); CARBON DIOXIDE 24 mmol/L (22-31); CHLORIDE 100 mmol/L (100-111); CREATININE SERUM 0.6 mg/dL (0.6-1.4); GLOM FILT RATE Estimated 81.4 mL/min (>60); GLUCOSE FASTING 91 mg/dL (70-110); MAGNESIUM 1.9 mg/dL (1.6-3.0); POTASSIUM 3.9 mmol/L (3.5-5.1); SODIUM 135 mmol/L (135-145)
[2016-10-17 16:09] LABS: MAGNESIUM 1.5 mg/dL (1.6-3.0); POTASSIUM 3.6 mmol/L (3.5-5.1)
[2016-10-18 05:58] LABS: HEMATOCRIT 42.7 % (35.0-45.0); MEAN CELL VOLUME 87.1 FL (83-96); MEAN CORPUSCULAR HEMOGLOBIN 28.5 PG (28-34); MEAN CORPUSCULAR HGB CONC 32.7 g/dL (30-36); MEAN PLATELET VOLUME 9.4 FL (6.5-11.5); RED BLOOD COUNT 4.9 X10e (3.90-5.30); RED CELL DISTRIBUTION WIDTH 14.7 % (11.0-15.5); WHITE BLOOD COUNT 9.9 X10e3 (4.0-10.5)
[2016-10-18 07:11] LABS: BUN/CREATININE RATIO 18.33; CALCIUM SERUM 9.8 mg/dL (8.4-10.2); CREATININE SERUM 0.6 mg/dL (0.6-1.4); GLOM FILT RATE Estimated 81.4 mL/min (>60); MAGNESIUM 1.8 mg/dL (1.6-3.0); POTASSIUM 4.1 mmol/L (3.5-5.1)
== END 2016-10-18 17:50 | DRG 92 ==
LOC: CED 11:05 → CEDOF 13:40 → CED 15:20 → CEDOF 15:20 → CED 15:56 → CEDOF 15:56 → C5B 19:54 → CEDOF 19:54 → C5B 10-15 08:00 → CEDOF 10-15 13:40 → C2A 10-15 13:40 → C5B 10-15 13:40 → C2A 10-15 13:40 → C5B 10-17 11:44 → C2A 10-18 17:50
PROVIDERS: Family Medicine; Internal Medicine; Physician Assistant Medical; Student in an Organized Health Care Education/Training Program
DX: G92 Toxic encephalopathy (principal); F05 Delirium due to known physiological condition; F03.90 Unspecified dementia, unspecified severity, without behavioral disturbance, psychotic disturbance, mood disturbance, and anxiety; N39.0 Urinary tract infection, site not specified; R44.3 Hallucinations, unspecified; E87.6 Hypokalemia; E83.42 Hypomagnesemia; K21.9 Gastro-esophageal reflux disease without esophagitis; G40.909 Epilepsy, unspecified, not intractable, without status epilepticus; I10 Essential (primary) hypertension; M62.3 Immobility syndrome (paraplegic); I49.3 Ventricular premature depolarization; G25.81 Restless legs syndrome
CPT/HCPCS: 36415; 36600; 70450; 70551; 71010; 80048; 80053; 80307; 81003; 82140; 82550; 82553; 82607; 82746; 82803; 83735; 84132; 84439; 84443; 84484; 85025; 85027; 85610; 85730; 87040; 87086; 87804; 92610; 93005; 96365; 97110; 97116; 97162; 97166; 97530; 97535; 99285; G0480; G8978-GP; G8979-GP; G8980-GP; G8987-GO; G8988-GO; G8989-GO; G8996-GN; G8997-GN; G8998-GN; J0696; J1630; J1650; J3475

== ENCOUNTER 2016-10-20 12:57 | Emergency (ER) | payer MEDICARE, BC ==
--- NOTE | ~2016-10-20 | CT52 ---
[facility] A Service of [facility] RADIOLOGY TEXT RESULTS PATIENT: SHAHNAZ WORLEY LOCATION: [facility] : [birth year] UNIT #: [id number] AGE: [address]: Bob Barnes MD SEX: F ORDER DR: [id number] [facility] [address] [facility] [place], [place] [address] [id number] E MR#: [id number] Acc #: [id number] NAME: SHAHNAZ WORLEY. : 1930 SEX: F STUDY DATE/TIME: 10/20/2016 13:56 UNIT: [facility] ROOM: STUDY DESCRIPTION: CT Cervical Spine Wo Cont Attending Physician: Bob Barnes M.D. Ordering Physician: Bob Barnes M.D. Primary Care Physician: Rocael Epstein Jr., M.D. MEDICAL IMAGING REPORT This report is preliminary unless electronic signature is present EXAM CT cervical spine without contrast. HISTORY Neck pain after a fall today. TECHNIQUE This CT exam was performed with one or more of the following radiation dose reduction techniques: automatic exposure control, adjustment of mA and/or kV according to patient size, and iterative reconstruction. FINDINGS CT cervical spine without contrast demonstrates mild degenerative disc space narrowing from C3-4 to C6-7 with small broad-based posterior marginal osteophytes at these levels, slightly larger at C6-7. There is moderate right-sided bony outlet foraminal narrowing at C6-7. Moderately severe degenerative changes at the anterior junction of C1-2. No fracture or subluxation. No precervical soft tissue swelling. IMPRESSION 1. No acute findings. No fracture. 2. Multilevel degenerative changes including mild disc space narrowing from C3-4 to C6-7. 3. Moderate right-sided bony outlet foraminal narrowing at C6-7 Dictated by... Kelechi Egan M.D. THIS IS AN ELECTRONICALLY VERIFIED REPORT Kelechi Egan M.D. at 10/21/2016 11:10 PM DFL/tmw [facility] A Service of [facility] RADIOLOGY TEXT RESULTS PATIENT: SHAHNAZ WORLEY [id number] : [birth year] UNIT #: [id number] AGE: [address]: Bob Barnes MD SEX: F ORDER DR: TD: 10/20/2016 14:30 JOB #: [id number] MEDICAL IMAGING REPORT Page 1 of 1 COPY
--- NOTE | ~2016-10-20 | CT71 ---
[facility] A Service of [facility] RADIOLOGY TEXT RESULTS PATIENT: SHAHNAZ WORLEY LOCATION: [facility] : [birth year] UNIT #: [id number] AGE: [address]: Bob Barnes MD SEX: F ORDER DR: [id number] [facility] [address] [place], [place] [address] [id number] MR#: [id number] Acc #: [id number] NAME: SHAHNAZ WORLEY. : 1930 SEX: F STUDY DATE/TIME: 10/20/2016 13:53 UNIT: BART ROOM: STUDY DESCRIPTION: CT Head Wo Contrast Attending Physician: Bob Barnes M.D. Ordering Physician: Bob Barnes M.D. Primary Care Physician: Rocael Epstein Jr., M.D. MEDICAL IMAGING REPORT This report is preliminary unless electronic signature is present EXAM CT brain without contrast, HISTORY Fell and hit head today. Left side head pain. TECHNIQUE This CT exam was performed with one or more of the following radiation dose reduction techniques: automatic exposure control, adjustment of mA and/or kV according to patient size, and iterative reconstruction. FINDINGS CT brain without contrast demonstrates no intracranial hemorrhage, mass or edema. Moderate generalized ventricular dilatation and moderate chronic ischemic changes in the periventricular white matter bilaterally. 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 No midline shift. No extraaxial fluid collection. Small scalp contusion over the left posterior occipital skull. IMPRESSION 1. No acute intracranial findings. 2. Small scalp contusion over the left posterior occipital skull. 3. Moderate generalized ventricular dilatation and chronic ischemic changes in the deep white matter bilaterally. 4. 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 Dictated by... Kelechi Egan M.D. THIS IS AN ELECTRONICALLY VERIFIED REPORT [facility] A Service [facility] RADIOLOGY TEXT RESULTS PATIENT: SHAHNAZ WORLEY LOCATION: [facility] : [birth year] UNIT #: [id number] AGE: [address]: Bob Barnes MD SEX: F ORDER DR: Kelechi Egan M.D. at 10/21/2016 11:10 PM MICHELLEL/hira TD: 10/20/2016 14:22 JOB #: [id number] MEDICAL IMAGING REPORT Page 1 of 1 COPY
== END 2016-10-20 18:14 | disposition home or self-care (01) ==
LOC: CED 12:57
DX: S09.90XA Unspecified injury of head, initial encounter (principal); S13.4XXA Sprain of ligaments of cervical spine, initial encounter; S00.03XA Contusion of scalp, initial encounter; Z79.899 Other long term (current) drug therapy; W18.00XA Striking against unspecified object with subsequent fall, initial encounter; Y92.009 Unspecified place in unspecified non-institutional (private) residence as the place of occurrence of the external cause
CPT/HCPCS: 70450; 72125; 99284